=== PATIENT | male | born 1955 | race African-American/Black ===

== ENCOUNTER → 2017-06-26 | Outpatient (REF) ==
--- NOTE | 2017-06-26 10:33 | REP ---
Left shoulder three views : There is no fracture or dislocation. Mineralization and joint spaces are normal. There are no calcifications or foreign bodies. Impression: Negative left shoulder at the . Signed by Jose Martínez MD 06/26/2017 10:25 A
== END ==
LOC: M RAD 09:59
PROVIDERS: ATTEND Internal Medicine
DX: M25.512 Pain in left shoulder (principal)

== ENCOUNTER → 2020-12-05 | Outpatient (CLI) | payer OTHER ==
[~2020-12-05] MED LIST: ATEN100T PO; DILT1CAP5 PO; DOXA2TAB3 PO; DRIS50003 PO; LISI40TA4 PO; MELO15TA28 PO; ROSU40TA4 PO; ZYLO300T6 PO
== END ==
LOC: M LABSMTC 10:32
PROVIDERS: ATTEND Anesthesiology
DX: Z01.812 Encounter for preprocedural laboratory examination (principal)

== ENCOUNTER 2020-12-10 09:44 | Day surgery (SDC) | payer OTHER ==
[~2020-12-10] VITALS: Ht 175.3 cm; Wt 120.7 kg
[~2020-12-10 09:44] MED LIST changes: +NS 1,000 ML IV ONE
[2020-12-10] MEDS ORDERED: LIDOCAINE 2% 100MG/5ML SDV (FOR ANES.) As Ordered ONE (11:39)
[2020-12-10] MEDS ORDERED: propofoL 500 MG/50 ML VIAL As Ordered ONE ×2 (11:39→12:02)
[2020-12-10] MEDS ORDERED: PHENYLephrine 500MCG 5ML (100MCG/ML) SYRINGE As Ordered ONE (11:49)
--- NOTE | 2020-12-10 12:20 | ROOR ---
Patient Name: Tello Moise Procedure Date: 12/10/2020 11:34 AM Date of : 1955 Age: 65 Room: [facility] Gender: Male Note Status: Finalized Procedure: Colonoscopy Indications: High risk colon cancer surveillance: Personal history of colonic polyps Providers: Rivera Joyner MD Referring MD: Foster SCHUMACHER [facility] Marquis SCHUMACHERtolcaribel [facility], Admin. Requesting Provider: Medicines: Monitored Anesthesia Care Complications: No immediate complications. Procedure: Pre-Anesthesia Assessment: - Prior to the procedure, a History and Physical was performed, and patient medications and allergies were reviewed. The patient is competent. The risks and benefits of the procedure and the sedation options and risks were discussed with the patient. All questions were answered and informed consent was obtained. Patient identification and proposed procedure were verified by the physician, the nurse and the anesthesiologist in the endoscopy suite. Mental Status Examination: alert and oriented. Airway Examination: normal oropharyngeal airway and neck mobility. Respiratory Examination: clear to auscultation. CV Examination: normal. Prophylactic Antibiotics: The patient does not require prophylactic antibiotics. Prior Anticoagulants: The patient has taken no previous anticoagulant or antiplatelet agents. ASA Grade Assessment: III - A patient with severe systemic disease. After reviewing the risks and benefits, the patient was deemed in satisfactory condition to undergo the procedure. The anesthesia plan was to use monitored anesthesia care (MAC). Immediately prior to administration of medications, the patient was re-assessed for adequacy to receive sedatives. The heart rate, respiratory rate, oxygen saturations, blood pressure, adequacy of pulmonary ventilation, and response to care were monitored throughout the procedure. The physical status of the patient was re-assessed after the procedure. The Colonoscope was introduced through the anus and advanced to the cecum, identified by appendiceal orifice and ileocecal valve. The colonoscopy was technically difficult and complex due to a redundant colon, a tortuous colon and the patient's body habitus. Successful completion of the procedure was aided by applying abdominal pressure. The patient tolerated the procedure well. Findings: The perianal and digital rectal examinations were normal. Back of ileocaecal valve not fully visualized, colonoscope up to the hub, but not masses visualized. Two flat polyps were found in the transverse colon and cecum. The polyps were diminutive in size. These polyps were removed with a cold biopsy forceps. Resection and retrieval were complete. Estimated blood loss was minimal. A 4 mm polyp was found in the descending colon. The polyp was sessile. The polyp was removed with a cold snare. Resection and retrieval were complete. Estimated blood loss: none. The retroflexed view of the distal rectum and anal verge was normal and showed no anal or rectal abnormalities. There was a medium-sized lipoma, 20 mm in diameter, in the transverse colon. Impression: - Two diminutive polyps in the transverse colon and in the cecum, removed with a cold biopsy forceps. Resected and retrieved. - One 4 mm polyp in the descending colon, removed with a cold snare. Resected and retrieved. - The distal rectum and anal verge are normal on retroflexion view. Recommendation: - Discharge patient to home (ambulatory). - Repeat colonoscopy in 5 years for surveillance of multiple polyps. Procedure Code(s): --- Professional --- 38950, Colonoscopy, flexible; with removal of tumor(s), polyp(s), or other lesion(s) by snare technique 23912, 59, Colonoscopy, flexible; with biopsy, single or multiple Diagnosis Code(s): --- Professional --- K63.5, Polyp of colon Z86.010, Personal history of colonic polyps CPT copyright 2019 [employer]. All rights reserved. The codes documented in this report are preliminary and upon senior qa tester review may be revised to meet current compliance requirements. Rivera Joyner MD Rivera Joyner MD 12/10/2020 12:19:58 PM Electronically signed by Rivera Joyner MD Number of Addenda: 0 Note Initiated On: 12/10/2020 11:34 AM Estimated Blood Loss: Estimated blood loss was minimal.
[2020-12-10 12:45] VITALS: BP 97/58
== END 2020-12-10 12:57 | disposition home or self-care (01) ==
LOC: M OPP 09:44
PROVIDERS: ATTEND Surgery
DX: Z12.11 Encounter for screening for malignant neoplasm of colon (principal); Z86.010 Personal history of colon polyps; D12.6 Benign neoplasm of colon, unspecified; Z79.899 Other long term (current) drug therapy; Z87.891 Personal history of nicotine dependence
CPT/HCPCS: 45380; 45385; 88305; J2370

== ENCOUNTER 2020-12-26 13:38 | Emergency (ER) | payer OTHER ==
[~2020-12-26] VITALS: Ht 175.3 cm; Wt 120.9 kg
[~2020-12-26 13:38] MED LIST changes: -NS 1,000 ML IV ONE
[2020-12-26 14:17] LABS: BASO % 0.3 % (0.0-1.0); EOS % 0.1 % (0.0-3.0); HEMATOCRIT 44.3 % (42.0-52.0); HEMOGLOBIN 14.5 g/dl (13.5-17.5); LYMPH # 0.9 10^3/uL (1.5-5.0); LYMPH % 8.2 % (24.0-44.0); MEAN CORPUSCULAR HEMOGLOBIN 26.8 pg (27.0-33.0); MEAN CORPUSCULAR HGB CONC 32.7 g/dl (32.0-36.5); MEAN CORPUSCULAR VOLUME 81.7 fl (80.0-96.0); MONO % 8.5 % (2.0-8.0); NEUTROPHILS # 9.5 10^3/uL (1.5-8.5); NEUTROPHILS % 82.4 % (36.0-66.0); PLATELET COUNT, AUTOMATED 313 10^3/uL (150-450); RED BLOOD COUNT 5.42 10^6/uL (4.30-6.10); WHITE BLOOD COUNT 11.5 10^3/uL (4.0-10.0)
--- NOTE | 2020-12-26 14:46 | REP ---
INDICATION: Abdominal Pain COMPARISON: None. TECHNIQUE: Upright view of the chest with supine and upright views of the abdomen and pelvis. FINDINGS: Frontal upright view of the chest demonstrates chronic elevation to the left hemidiaphragm and no acute cardiopulmonary process or free air below the diaphragm to suspect pneumoperitoneum. Supine and upright views of the abdomen and pelvis demonstrate nonspecific bowel gas pattern without obstruction or perforation. No organomegaly. No abnormal calcifications. Skeletal structures normal for age. IMPRESSION: Nonspecific bowel gas pattern. <Electronically signed by Mitchell Lo > 12/26/20 [id number]
[2020-12-26 14:52] LABS: ALBUMIN 2.8 GM/DL (3.2-5.2); ALT/SGPT 47 U/L (12-78); BILIRUBIN,DIRECT 0.2 MG/DL (0.0-0.2); BILIRUBIN,TOTAL 0.8 MG/DL (0.2-1.0); BLOOD UREA NITROGEN 18 MG/DL (7-18); CALCIUM LEVEL 12.8 MG/DL (8.8-10.2); CARBON DIOXIDE LEVEL 30 MEQ/L (21-32); CHLORIDE LEVEL 100 MEQ/L (98-107); CK-MB VALUE MASS 1.2 NG/ML (<3.6); CPK CREATINE PHOSPHOKINASE 48 U/L (39-308); CREATININE FOR GFR 1.18 MG/DL (0.70-1.30); GLOMERULAR FILTRATION RATE > 60.0 (>49); GLUCOSE, FASTING 102 MG/DL (70-100); LIPASE 90 U/L (73-393); POTASSIUM SERUM 4.7 MEQ/L (3.5-5.1); SODIUM LEVEL 136 MEQ/L (136-145); TOTAL PROTEIN 6.6 GM/DL (6.4-8.2); TROPONIN I 0.06 NG/ML (< 0.10)
[2020-12-26] MEDS ORDERED: NS 1,000 ML IV ONE (15:25)
[2020-12-26 16:38] LABS: FREE T4 1.28 NG/DL (0.76-1.46); PTH INTACT 357.3 PG/ML (18.5-88.0); THYROID STIMULATING HORMONE 0.733 uIU/ML (0.358-3.740)
[2020-12-26] MEDS ORDERED: MIRA3350 PO (16:55)
[2020-12-26 17:50] VITALS: BP 122/75
--- NOTE | 2020-12-27 06:22 | ECGEPIP ---
[facility] - ED Test Date: 2020-12-26 Pat Name: JHONATHAN GEIGER Department: Room: - Gender: Male Speech And Language Clinician: Elysia MELISSA : 1955 Requested By: KIRILL STEVENS Order Number: [id number] Reading MD: Kirill Daly Measurements Intervals [place] Rate: 94 P: 22 FL: 152 QRS: 72 QRSD: 84 T: 38 QT: 314 QTc: 392 Interpretive Statements Normal sinus rhythm Nonspecific ST and T wave abnormality Similar to tracing done 12-20-14 Electronically Signed on 12-27-2020 6:22:21 EDT by Kirill Daly
== END 2020-12-26 17:50 | disposition home or self-care (01) ==
LOC: M ED 13:38 → EDBD 13:38 → M ED 17:50
DX: K59.00 Constipation, unspecified (principal); I10 Essential (primary) hypertension; E03.9 Hypothyroidism, unspecified; E83.52 Hypercalcemia; Z79.899 Other long term (current) drug therapy

== ENCOUNTER 2021-01-02 10:54 | Inpatient (IN) | payer OTHER ==
[~2021-01-02] VITALS: Ht 180.3 cm; Wt 118.3 kg
[~2021-01-02 10:54] MED LIST changes: +MIRA3350 PO
[2021-01-02 11:30] LABS: BASO % 0.2 % (0.0-1.0); EOS % 0.1 % (0.0-3.0); HEMATOCRIT 44.3 % (42.0-52.0); HEMOGLOBIN 14.3 g/dl (13.5-17.5); LYMPH % 7.1 % (24.0-44.0); MEAN CORPUSCULAR HEMOGLOBIN 25.9 pg (27.0-33.0); MEAN CORPUSCULAR HGB CONC 32.3 g/dl (32.0-36.5); MEAN CORPUSCULAR VOLUME 80.1 fl (80.0-96.0); MONO # 1.3 10^3/uL (0.0-0.8); MONO % 9.2 % (2.0-8.0); NEUTROPHILS # 11.4 10^3/uL (1.5-8.5); NEUTROPHILS % 82.9 % (36.0-66.0); PLATELET COUNT, AUTOMATED 326 10^3/uL (150-450); RED BLOOD COUNT 5.53 10^6/uL (4.30-6.10); WHITE BLOOD COUNT 13.7 10^3/uL (4.0-10.0)
--- NOTE | 2021-01-02 11:42 | REP ---
INDICATION: AMS. COMPARISON: None. TECHNIQUE: CT brain performed in the axial plane. Coronal reconstruction images are performed. FINDINGS: There is mild atrophy. There is no midline shift or mass effect. Small old lacunar infarct is seen in the right frontal white matter adjacent to the frontal horn of the right lateral ventricle. There is no acute intracranial hemorrhage. There is no extra-axial fluid collection. There are mild vascular calcifications in the carotid siphons. Visualized paranasal sinuses and the mastoid air cells are well aerated and clear with no abnormal opacification. IMPRESSION: No acute intracranial abnormalities. Mild atrophy. Old lacunar infarct right frontal white matter. <Electronically signed by Jose Hastings > 01/02/21 [id number]
[2021-01-02] MEDS ORDERED: NS 1,000 ML IV ONE ×3 (11:45→18:30)
--- NOTE | 2021-01-02 11:56 | REP ---
INDICATION: altered mental. COMPARISON: 12/26/2020. TECHNIQUE: Single portable AP view of the chest was performed. FINDINGS: There is stable moderate elevation of the left hemidiaphragm. Crowded lung markings are seen in each lung base with no evidence of acute infiltrate. The heart is not significantly enlarged. The mediastinal silhouette is unchanged. IMPRESSION: No acute pulmonary disease.Stable exam. <Electronically signed by Jose Hastings > 01/02/21 [id number]
[2021-01-02 12:15] LABS: AMPHETAMINES LEVEL URINE NEGATIVE (NEGATIVE); BARBITURATES URINE NEGATIVE (NEGATIVE); BENZODIAZEPINES URINE NEGATIVE (NEGATIVE); CANNABINOIDS URINE NEGATIVE (NEGATIVE); COCAINE METABOLITE URINE NEGATIVE (NEGATIVE); METHADONE URINE NEGATIVE (NEGATIVE); OPIATES URINE NEGATIVE (NEGATIVE); PHENCYCLIDINE URINE NEGATIVE (NEGATIVE)
[2021-01-02 12:32] LABS: ALBUMIN 2.5 GM/DL (3.2-5.2); ALT/SGPT 67 U/L (12-78); BILIRUBIN,DIRECT 0.3 MG/DL (0.0-0.2); BILIRUBIN,TOTAL 0.9 MG/DL (0.2-1.0); BLOOD UREA NITROGEN 23 MG/DL (7-18); CALCIUM LEVEL 14.1 MG/DL (8.8-10.2); CARBON DIOXIDE LEVEL 27 MEQ/L (21-32); CHLORIDE LEVEL 101 MEQ/L (98-107); CK-MB VALUE MASS 10.9 NG/ML (<3.6); CPK CREATINE PHOSPHOKINASE 2557 U/L (39-308); CREATININE FOR GFR 1.13 MG/DL (0.70-1.30); ETHYL ALCOHOL (ETHANOL) < 0.003 % (0.000-0.010); GLOMERULAR FILTRATION RATE > 60.0 (>49); GLUCOSE, FASTING 111 MG/DL (70-100); MB/CK RELATIVE INDEX 0.43 (< OR =4); POTASSIUM SERUM 3.9 MEQ/L (3.5-5.1); SODIUM LEVEL 135 MEQ/L (136-145); THYROID STIMULATING HORMONE 0.472 uIU/ML (0.358-3.740); TROPONIN I 0.24 NG/ML (< 0.10)
[2021-01-02] MEDS ORDERED: CALCITONIN SALMON (MIACALCIN) 400INTERNATIONAL UNITS/2ML INJ (J0630) SQ ONE (13:20)
[2021-01-02] MEDS ORDERED: CINACALCET 30 MG TAB (SENSIPAR) PO ONE (13:40)
[2021-01-02] MEDS ORDERED: VALS1TAB68 PO (14:08)
[2021-01-02] MEDS ORDERED: CYCL-707 PO (14:08)
[2021-01-02] MEDS ORDERED: DOXA1TAB40 PO (14:08)
[2021-01-02] MEDS ORDERED: SENN-23 PO (14:08)
[2021-01-02] MEDS ORDERED: SILD100T PO (14:08)
[2021-01-02] MEDS ORDERED: MED REC COMMENT (14:26)
[2021-01-02 14:32] LABS: CK-MB VALUE MASS 9.3 NG/ML (<3.6); MB/CK RELATIVE INDEX 0.39 (< OR =4); TROPONIN I 0.22 NG/ML (< 0.10)
[2021-01-02] MEDS ORDERED: XALA0.007 OU (14:33)
[2021-01-02] MEDS ORDERED: DICY1CAP8 PO (14:33)
[2021-01-02] MEDS ORDERED: BACITAB PO (14:33)
[2021-01-02] MEDS ORDERED: ASPI32ECTA PO (14:33)
[2021-01-02] MEDS ORDERED: DRIS50003 PO (14:33)
[2021-01-02] MEDS ORDERED: ROSU40TA4 PO (14:33)
[2021-01-02] MEDS ORDERED: LISI20TA33 PO ×2 (14:33)
[2021-01-02] MEDS ORDERED: DILT1CAP6 PO (14:33)
[2021-01-02] MEDS ORDERED: ATEN100T PO (14:33)
[2021-01-02 15:36] LABS: RSV AMPLIFICATION NEGATIVE (NEGATIVE)
--- NOTE | 2021-01-02 15:36 | ECGEPIP ---
[facility] - ED Test Date: 2021-01-02 Pat Name: JHONATHAN GEIGER Department: Room: - Gender: Male Top Case Assembler: LIBIA : 1955 Requested By: SHIVAM Ro Order Number: [id number] Reading MD: Sonya Damon Measurements Intervals [place] Rate: 111 P: 29 IN: 162 QRS: 69 QRSD: 84 T: 69 QT: 308 QTc: 418 Interpretive Statements Sinus tachycardia with occasional premature ventricular complexes Minimal voltage criteria for LVH, may be normal variant ( Sokolow-Jaramillo ) Nonspecific ST and T wave abnormality increased rate/ectopy 12/26/20 Electronically Signed on 01-02-2021 15:35:53 EDT by Sonya Damon
[2021-01-02] MEDS: NS 1,000 ML IV SCH ×2 (17:47→20:05)
--- NOTE | 2021-01-02 18:07 | HPEPDOC ---
General Date of Admission Jan 02, 2021 at 10:55 Date of Service: Jan 02, 2021 Chief Complaint The patient is a 65-year-old male admitted with a reason for visit of Hypercalcemia. History of Present Illness 65-year-old male with a past medical history of hypertension, high calcium. Plan for surgery in January 2021, hyperlipidemia, gout, constipation, glaucoma was brought into the emergency room by EMS for confusion and lethargy. Patient was found by daughter this morning lying in bed, lethargic with urinary incontinence. In the ED, patient was found to have hypercalcemia over 14 with severe dehydration and rhabdomyolysis .ED physician got in touch with Dr. Alka Wise and the started the patient on Sensipar a as per her recommendations. . He was given IV fluid boluses. By the time I saw the patient. Patient was more awake. . He knew that he was in the hospital and couldn't give me the correct name of the hospital. He was able to give me a little bit of the history. He reported that since he had his colonoscopy on December 10. He hasn't felt right. He has been having lower abdominal pains which are crampy in nature. When the cramps come he rates the pain at about 8/10. He has been constipated, hasn't been able to eat or drink much. He has been so weak and tired that he has been mostly sitting around. On further questioning, he said that he does have history of hypertension and he [facility] Home Medications Scheduled Allopurinol (Zyloprim) 300 Mg Tablet, 300 MG PO DAILY, (Reported) Aspirin (Aspirin EC) 325 Mg Tablet.dr, 325 MG PO DAILY, (Reported) Atenolol (Atenolol) 100 Mg Tablet, 100 MG PO DAILY, (Reported) Diltiazem HCl (Diltiazem 24Hr ER) 240 Mg Cap.sa.24h, 240 MG PO QPM, (Reported) Doxazosin Mesylate (Doxazosin Mesylate) 4 Mg Tablet, 4 MG PO QHS, (Reported) Ergocalciferol (Vitamin D2) (Drisdol) 1,250 Mcg Capsule, 1,250 MCG PO Q2WK, (Reported) L.acidoph/L.bulg/B.bif/S.therm (Bacid Caplet) 1 Each Tablet, 1 TAB PO QID, (Reported) Latanoprost (Xalatan) 0.005% 2.5ML Drops, 1 DROP OU QHS, (Reported) Lisinopril (Lisinopril) 20 Mg Tablet, 10 MG PO QAM, (Reported) Lisinopril (Lisinopril) 20 Mg Tablet, 40 MG PO QHS, (Reported) Meloxicam (Meloxicam) 15 Mg Tablet, 15 MG PO DAILY, (Reported) Rosuvastatin Calcium (Rosuvastatin Calcium) 40 Mg Tablet, 40 MG PO QPM, (Reported) Valsartan (Valsartan) 320 Mg Tablet, 320 MG PO DAILY, (Reported) Scheduled PRN Cyclobenzaprine HCl (Cyclobenzaprine HCl) 10 Mg Tablet, 10 MG PO QHS PRN for MUSCLE SPASMS, (Reported) Dicyclomine HCl (Dicyclomine HCl) 10 Mg Capsule, 10 MG PO TID PRN for ABDOMINAL PAIN, (Reported) Sennosides/Docusate Sodium (Senna-S Tablet) 1 Each Tablet, 3 TAB PO DAILY PRN for CONSTIPATION, (Reported) Sildenafil Citrate (Sildenafil Citrate) 100 Mg Tablet, 50 MG PO ASDIRECTED PRN for ERECTILE DYSFUNCTION, (Reported) Miscellaneous Medications [Med Rec Comment] , (Reported) VERIFIED MEDICATIONS WITH DAUGHTER [place] WHO HAD PILL BOTTLES, UNSURE WHEN TAKEN LAST Allergies Coded Allergies: No Known Allergies (Unverified , 12/02/20) Past Medical History Medical History Hypertension HLD CHRISTI untreated High calcium planned for parathyroid surgery in january 2021. BPH Glaucoma Gout Erectile dys Family History Significant Family History: Hypertension Social History * Smoker: former Smoker Alcohol: occationally Drugs: denies A-FIB/CHADSVASC A-FIB History Current/History of A-Fib/PAF?: No Review of Systems Constitutional: Reports: Malaise, Weakness, Fatigue Eyes: Denies: Pain, Vision change Skin: Denies: Rash, Lesions, Breakdown Pulmonary: Denies: Dyspnea, Cough Cardiovascular: Denies: Chest Pain, Palpitations, Orthopnea, Paroxysmal Noc. Dyspnea, Lt Headedness Gastrointestinal: Reports: Abdominal Pain, Constipation; Denies: Nausea, Vomiting, Diarrhea Genitourinary: Reports: Incontinence Hematologic: Denies: Bruising, Bleeding Excessively Physical Examination General Exam: Positive: Cooperative, No Acute Distress, Other (somnolent but easily arousable and oriented to place and person and knew it was the end of december 2020.) Eye Exam: Positive: Conjunctiva & lids normal, EOMI ENT Exam: Positive: Atraumatic, Other ENT (dry mucous membranes, chaped lips) Neck Exam: Positive: Supple; Negative: JVD, thyromegaly Chest Exam: Positive: Clear to auscultation, Normal air movement Heart Exam: Positive: Tachycardic, Regular Rhythm, Normal S1, Normal S2; Negative: Murmurs, Rubs Abdomen Exam: Positive: Normal bowel sounds, Soft, Tenderness (lower abdomen); Negative: Hepatospenomegaly Extremity Exam: Negative: Clubbing, Cyanosis, Edema Neuro Exam: Positive: Normal Speech, Strength at 5/5 X4 ext, Normal Tone Vital Signs Vital Signs Date Time Temp Pulse Resp B/P (MAP) Pulse Ox O2 Delivery O2 Flow Rate FiO2 01/02/21 16:04 96.1 108 20 166/84 (111) 100 Nasal Cannula 2.0 Laboratory Data Labs 24H Laboratory Tests 2 01/02/21 11:18: Immature Granulocyte % (Auto) 0.5, Neutrophils (%) (Auto) 82.9H, Lymphocytes (%) (Auto) 7.1L, Monocytes (%) (Auto) 9.2H, Eosinophils (%) (Auto) 0.1, Basophils (%) (Auto) 0.2, Neutrophils # (Auto) 11.4H, Lymphocytes # (Auto) 1.0L, Monocytes # (Auto) 1.3H, Eosinophils # (Auto) 0.0, Basophils # (Auto) 0.0, Nucleated Red Blood Cells % (auto) 0.0, Urine Color YELLOW, Urine Appearance HAZY, Urine pH 5.0, Urine Specific [place] 1.013, Urine Protein 2+H, Urine Glucose (UA) NEGATIVE, Urine Ketones NEGATIVE, Urine Blood 2+H, Urine Nitrite NEGATIVE, Urine Bilirubin NEGATIVE, Urine Urobilinogen 2.0H, Urine Leukocyte Esterase NEGATIVE, Urine WBC (Auto) 6H, Urine RBC (Auto) 3, Urine Hyaline Casts (Auto) 0, Urine Bacteria (Auto) 1+H, Urine Squamous Epithelial Cells 1, Urine Mucus (Auto) SMALL, Urine Sperm (Auto) , Anion Gap 7L, Glomerular Filtration Rate > 60.0, Lactic Acid Level 1.7, Calcium Level 14.1*H, Total Bilirubin 0.9, Direct Bilirubin 0.3H, Aspartate Amino Transf (AST/SGOT) 140H, Alanine Aminotransferase (ALT/SGPT) 67, Alkaline Phosphatase 104, Ammonia 34H, Total Creatine Kinase 2557H, Creatine Kinase MB 10.9H, Creatine Kinase MB Relative Index 0.43, Troponin I 0.24H, Total Protein 7.0, Albumin 2.5L, Albumin/Globulin Ratio 0.6, Thyroid Stimulating Hormone (TSH) 0.472, Urine Opiates Screen NEGATIVE, Urine Methadone Screen NEGATIVE, Urine Barbiturates Screen NEGATIVE, Urine Phencyclidine Screen NEGATIVE, Urine Amphetamines Screen NEGATIVE, Urine Benzodiazepines Screen NEGATIVE, Urine Cocaine Metabolite Screen NEGATIVE, Urine Cannabinoids Screen NEGATIVE, Ethyl Alcohol Level < 0.003 01/02/21 13:38: Total Creatine Kinase 2379H, Creatine Kinase MB 9.3H, Creatine Kinase MB Relative Index 0.39, Troponin I 0.22H, Whole Blood Ionized Calcium 6.7*H 01/02/21 14:46: Coronavirus (COVID-19)(PCR) NEGATIVE, Influenza Type A (RT-PCR) NEGATIVE, Influenza Type B (RT-PCR) NEGATIVE, Respiratory Syncytial Virus (PCR) NEGATIVE CBC/BMP Laboratory Tests 01/02/21 11:18 Microbiology Microbiology 01/02/21 Blood Culture, Received Pending 01/02/21 Blood Culture, Received Pending Assessment/Plan 65-year-old male with a past medical history of hypertension, high calcium. Plan for surgery in January 2021, hyperlipidemia, gout, constipation, glaucoma was brought into the emergency room by EMS for confusion and lethargy. Patient was found by daughter this morning lying in bed, lethargic with urinary incontinence. In the ED, patient was found to have hypercalcemia over 14 with severe dehydration and rhabdomyolysis . Hypercalcemia with dehydration Due to hyperparathyroidism. IVF, sensipar Rhabdomyomysis continue IVF Hypertension patient is on both lisinopril and valsatan will only give valsartan, continue atenolol and diltiazem and doxazosin BPH doxazosin. Gout allopurinol HLD rosuvastatin. Plan / VTE VTE Prophylaxis Ordered?: Yes ROSEY BARNARD MD Jan 02, 2021 18:07
[2021-01-02 18:24] VITALS: BP 129/85
[2021-01-02 20:00] VITALS: BP 141/85
[2021-01-02] MEDS: CINACALCET 30 MG TAB (SENSIPAR) PO SCH (21:47)
[2021-01-02] MEDS: SENOKOT S TAB PO SCH (21:48)
[2021-01-02] MEDS: ROSUVASTATIN 10 MG TAB (CRESTOR) PO SCH (21:49)
[2021-01-02] MEDS: DOXAZOSIN MESYLATE 4 MG TAB PO SCH (21:50)
[2021-01-02] MEDS: MIRALAX *UNIT DOSE* 17GM PACKET PO SCH (21:50)
[2021-01-03] VITALS: BP 116/65
[2021-01-03] MEDS: NS 1,000 ML IV SCH ×5 (00:17→23:27)
[2021-01-03 04:00] VITALS: BP 119/55
--- NOTE | 2021-01-03 06:18 | ECGEPIP ---
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
[2021-01-03 07:25] VITALS: BP 131/74
[2021-01-03] MEDS: CINACALCET 30 MG TAB (SENSIPAR) PO SCH ×2 (08:08→20:20)
[2021-01-03] MEDS: MIRALAX *UNIT DOSE* 17GM PACKET PO SCH ×2 (08:08→20:13)
[2021-01-03] MEDS: SENOKOT S TAB PO SCH ×2 (08:08→20:14)
[2021-01-03] MEDS: atenoloL 50 MG TAB PO SCH (08:08)
[2021-01-03] MEDS: ASPIRIN ENTERIC 325 MG TAB PO SCH (08:08)
[2021-01-03] MEDS: ENOXAPARIN 40MG/0.4ML SYRINGE (J1650 PER 10MG) SC SCH (08:08)
[2021-01-03] MEDS: VALSARTAN 80 MG TAB (DIOVAN) PO SCH (08:09)
[2021-01-03] MEDS: allopurinoL 300 MG TAB PO SCH (08:09)
[2021-01-03 10:13] LABS: HEMATOCRIT 36.4 % (42.0-52.0); MEAN CORPUSCULAR HEMOGLOBIN 26.9 pg (27.0-33.0); MEAN CORPUSCULAR HGB CONC 32.4 g/dl (32.0-36.5); MEAN CORPUSCULAR VOLUME 82.9 fl (80.0-96.0); PLATELET COUNT, AUTOMATED 251 10^3/uL (150-450); RED BLOOD COUNT 4.39 10^6/uL (4.30-6.10)
[2021-01-03 10:14] LABS: HEMOGLOBIN 11.8 g/dl (13.5-17.5)
[2021-01-03 10:42] LABS: ALT/SGPT 49 U/L (12-78); BILIRUBIN,TOTAL 0.5 MG/DL (0.2-1.0); BLOOD UREA NITROGEN 18 MG/DL (7-18); CALCIUM LEVEL 10.8 MG/DL (8.8-10.2); CARBON DIOXIDE LEVEL 28 MEQ/L (21-32); CHLORIDE LEVEL 112 MEQ/L (98-107); CK-MB VALUE MASS 2.5 NG/ML (<3.6); CPK CREATINE PHOSPHOKINASE 619 U/L (39-308); CREATININE FOR GFR 0.75 MG/DL (0.70-1.30); GLOMERULAR FILTRATION RATE > 60.0 (>49); GLUCOSE, FASTING 100 MG/DL (70-100); POTASSIUM SERUM 3.7 MEQ/L (3.5-5.1); SODIUM LEVEL 144 MEQ/L (136-145); TOTAL PROTEIN 5.2 GM/DL (6.4-8.2); TROPONIN I 0.09 NG/ML (< 0.10)
[2021-01-03] MEDS: VANCOMYCIN HCL 1,000 MG, VIAL MATE ADAPTER 1 EACH in NS 250 ML IV SCH ×2 (11:55→20:13)
[2021-01-03 12:00] VITALS: BP 95/52
--- NOTE | 2021-01-03 14:54 | IPNPDOC ---
Subjective Date Seen The patient was seen on 01/03/21. Subjective Chief Complaint/HPI And patient was sleeping in bed on iron in the room. He was easily aroused. He reports that he is feeling well at this time, and does not have any acute complaints. He is not complaining of any pain at this time. The remainder of his review of systems is negative. Objective Physical Examination General Exam: Positive: Cooperative, No Acute Distress, Other (somnolent but easily arousable and oriented to place and person and knew it was the end of december 2020.) Eye Exam: Positive: Conjunctiva & lids normal, EOMI ENT Exam: Positive: Atraumatic Neck Exam: Positive: Supple; Negative: JVD, thyromegaly Chest Exam: Positive: Clear to auscultation, Normal air movement; Negative: Rales, Rhonchi, Wheezing Heart Exam: Positive: Rate Normal, Regular Rhythm, Normal S1, Normal S2; Negative: Murmurs, Rubs Abdomen Exam: Positive: Normal bowel sounds, Soft, Tenderness (lower abdomen); Negative: Hepatospenomegaly Extremity Exam: Negative: Clubbing, Cyanosis, Edema Assessment /Plan Assessment 65-year-old male with a past medical history of hypertension, high calcium. Plan for surgery in January 2021, hyperlipidemia, gout, constipation, glaucoma was brought into the emergency room by EMS for confusion and lethargy. Patient was found by daughter this morning lying in bed, lethargic with urinary incontinence. In the ED, patient was found to have hypercalcemia over 14 with severe dehydration and rhabdomyolysis . Hypercalcemia with dehydration Due to hyperparathyroidism, apparently he is scheduled for surgery later this month -Improving -Continue IV fluids -Continue Sensipar twice daily dosing while inpatient, and then reduce to 30 mg daily upon discharge Rhabdomyomysis -Significantly improved, however not completely resolved. Will slow rate of IV fluids down from 250 mL/hr to 100 mL/hr Blood culture positive for gram-positive cocci in pairs and chains -Patient has not had any fevers, and white count was improving without the administration of antibiotics, however, given his entire clinical picture we will certainly treat him empirically. IV vancomycin has been started today, and we will repeat blood cultures. Hypertension -continue valsartan, atenolol, diltiazem, and doxazosin BPH -doxazosin. Gout -allopurinol HLD -rosuvastatin. DVD prophylaxis -Lovenox Plan/VTE VTE Prophylaxis Ordered?: Yes VS, I&O, 24H, Fishbone Vital Signs/I&O Vital Signs Date Time Temp Pulse Resp B/P (MAP) Pulse Ox O2 Delivery O2 Flow Rate FiO2 01/03/21 12:00 97.4 74 18 95/52 (66) 95 Room Air 01/02/21 20:00 I&O- Last 24 Hours up to 6 AM 01/03/21 06:00 Intake Total 3650 ml Output Total 200 ml Balance 3450 ml Laboratory Data 24H LABS Laboratory Tests 2 01/03/21 09:53: Nucleated Red Blood Cells % (auto) 0.0, Anion Gap 4L, Glomerular Filtration Rate > 60.0, Calcium Level 10.8#H, Total Bilirubin 0.5, Aspartate Amino Transf (AST/SGOT) 60H, Alanine Aminotransferase (ALT/SGPT) 49, Alkaline Phosphatase 84, Total Creatine Kinase 619H, Creatine Kinase MB 2.5, Creatine Kinase MB Relative Index 0.40, Troponin I 0.09#, Total Protein 5.2#L, Albumin 2.0L, Albumin/Globulin Ratio 0.6 CBC/BMP Laboratory Tests 01/03/21 09:53 Microbiology Microbiology 01/02/21 Blood Culture, Received Pending 01/02/21 Blood Culture - Preliminary, Resulted RACHELLE TURNER DO January 03, 2021 14:54
[2021-01-03] MEDS: DOXAZOSIN MESYLATE 4 MG TAB PO SCH (20:18)
[2021-01-03] MEDS: ROSUVASTATIN 10 MG TAB (CRESTOR) PO SCH (20:19)
[2021-01-03 22:00] VITALS: BP 108/69
[2021-01-04] MEDS: VANCOMYCIN HCL 1,000 MG, VIAL MATE ADAPTER 1 EACH in NS 250 ML IV SCH ×3 (03:36→20:11)
[2021-01-04 06:00] VITALS: BP 114/71
[2021-01-04 06:54] LABS: HEMATOCRIT 37.4 % (42.0-52.0); HEMOGLOBIN 11.8 g/dl (13.5-17.5); MEAN CORPUSCULAR HEMOGLOBIN 26.3 pg (27.0-33.0); MEAN CORPUSCULAR HGB CONC 31.6 g/dl (32.0-36.5); MEAN CORPUSCULAR VOLUME 83.5 fl (80.0-96.0); PLATELET COUNT, AUTOMATED 262 10^3/uL (150-450); RED BLOOD COUNT 4.48 10^6/uL (4.30-6.10); WHITE BLOOD COUNT 13.3 10^3/uL (4.0-10.0)
[2021-01-04 07:08] LABS: ALT/SGPT 46 U/L (12-78); BILIRUBIN,TOTAL 0.4 MG/DL (0.2-1.0); BLOOD UREA NITROGEN 14 MG/DL (7-18); CALCIUM LEVEL 12.4 MG/DL (8.8-10.2); CARBON DIOXIDE LEVEL 27 MEQ/L (21-32); CHLORIDE LEVEL 111 MEQ/L (98-107); CREATININE FOR GFR 0.74 MG/DL (0.70-1.30); GLOMERULAR FILTRATION RATE > 60.0 (>49); GLUCOSE, FASTING 99 MG/DL (70-100); POTASSIUM SERUM 3.5 MEQ/L (3.5-5.1); SODIUM LEVEL 143 MEQ/L (136-145); TOTAL PROTEIN 5.7 GM/DL (6.4-8.2)
[2021-01-04 07:36] LABS: C REACTIVE PROTEIN QUANTITATIV 4.98 MG/DL (0.00-0.30)
[2021-01-04 08:19] LABS: ERYTHROCYTE SEDIMENTATION RATE 42 mm/hr (0-20)
[2021-01-04] MEDS: SENOKOT S TAB PO SCH ×2 (08:40→20:09)
[2021-01-04] MEDS: ASPIRIN ENTERIC 325 MG TAB PO SCH (08:40)
[2021-01-04] MEDS: MIRALAX *UNIT DOSE* 17GM PACKET PO SCH ×2 (08:40→20:11)
[2021-01-04] MEDS: CINACALCET 30 MG TAB (SENSIPAR) PO SCH ×2 (08:40→20:10)
[2021-01-04] MEDS: atenoloL 50 MG TAB PO SCH (08:40)
[2021-01-04] MEDS: allopurinoL 300 MG TAB PO SCH (08:40)
[2021-01-04] MEDS: VALSARTAN 80 MG TAB (DIOVAN) PO SCH (08:40)
[2021-01-04] MEDS: NS 1,000 ML IV SCH (08:41)
[2021-01-04] MEDS: ENOXAPARIN 40MG/0.4ML SYRINGE (J1650 PER 10MG) SC SCH (08:41)
--- NOTE | 2021-01-04 10:38 | IPNPDOC ---
Text Note Date of Service The patient was seen on 01/04/21. NOTE Subjective: Patient is a 65-year-old male with a PMHx of HTN, Hypercalcemia (planed for surgery 01/2021), DLP, Gout, Constipation, Glaucoma , who presented to the ER with confusion and lethargy. Upon arrival to emergency room, patient had hypercalcemia over 14 with dehydration and rhabdomyolysis. Patient was admitted to the hospitalist service for further evaluation and treatment. Patient was seen and examined at the bedside. Patient is sleeping, however was e asily arousable and able to answer questions. He denied any chest pain, shortness breath or palpitations. Has not experience any nausea, vomiting or abdominal pain. Patient had a Loving catheter placed in the emergency room because of his urinary incontinence. Objective: Vitals (See below) General: Lying in bed, no acute distress, comfortable, AAOx3 HEENT: NC, AT CVS: RRR, +S1S2 Lungs: Fair air entry b/l, -w/r/r Abdomen: Soft, ND, NT Extremities: - Edema, - Calf tenderness Imaging: CT head 01/02: No acute intracranial abnormalities. Mild atrophy. Old lacunar infarct right frontal white matter. CXR 01/02: No acute pulmonary disease.Stable exam. Assessment and plan: Hypercalcemia with dehydration - Likely 2/2 hyperparathyroidism . Given that patient is scheduled for surgery later this month - Vitamin D (25-OH, 1,25-OH), PTH pending - Continue with IV fluids - Continue Cinacalcet - Nephrology has been called on consultation; we appreciate their input Rhabdomyolysis - CK Improving - c/w IV fluids Blood culture positive for gram-positive cocci in pairs and chains - Review of systems is negative for any source of infection - Patient has been hemodynamically stable and afebrile - Patient does have leukocytosis - Blood cultures 01/02 and 01/03: Have all been positive for gram-positive cocci in pairs and chains - Will check ESR / CRP / ECHO - c/w Vancomycin (Day #2) - Will consult infectious disease tomorrow Hypertension - BP well controlled - c/w valsartan, atenolol, diltiazem, and doxazosin BPH - c/w Doxazosin Gout - c/w Allopurinol DLP - c/w Rosuvastatin GI prophylaxis - c/w DVT prophylaxis - c/w Lovenox Disposition: - Will consult nephrology for hypercalcemia VS,Fishbone, I+O VS, Fishbone, I+O Laboratory Tests 01/04/21 06:06 Vital Signs Date Time Temp Pulse Resp B/P (MAP) Pulse Ox O2 Delivery O2 Flow Rate FiO2 01/04/21 08:40 114/71 01/04/21 06:00 98.1 94 18 93 Room Air 01/02/21 20:00 I&O- Last 24 Hours up to 6 AM 01/04/21 05:59 Intake Total 4478 ml Output Total 950 ml Balance 3528 ml KENDRICK QUINTANILLA MD January 04, 2021 10:38
[2021-01-04 10:39] LABS: VANCOMYCIN RANDOM 15.6 UG/ML
[2021-01-04] MEDS ORDERED: POTASSIUM CHLORIDE 10 MEQ SR TABLET PO ONE (11:00)
[2021-01-04] MEDS: CALCITONIN SALMON (MIACALCIN) 400INTERNATIONAL UNITS/2ML INJ (J0630) SQ SCH (12:32)
[2021-01-04] MEDS ORDERED: FUROSEMIDE 100MG/10ML VIAL (J1940) IV ONE (13:00)
[2021-01-04 13:11] LABS: BLOOD UREA NITROGEN 14 MG/DL (7-18); CALCIUM LEVEL 11.3 MG/DL (8.8-10.2); CARBON DIOXIDE LEVEL 29 MEQ/L (21-32); CHLORIDE LEVEL 109 MEQ/L (98-107); CREATININE FOR GFR 0.81 MG/DL (0.70-1.30); GLOMERULAR FILTRATION RATE > 60.0 (>49); GLUCOSE, FASTING 120 MG/DL (70-100); POTASSIUM SERUM 3.8 MEQ/L (3.5-5.1); SODIUM LEVEL 141 MEQ/L (136-145)
[2021-01-04 13:17] LABS: MAGNESIUM LEVEL 1.5 MG/DL (1.8-2.4); PHOSPHORUS LEVEL 2.2 MG/DL (2.5-4.9); TROPONIN I 0.05 NG/ML (< 0.10)
[2021-01-04] MEDS: MAG SULF 1GM/100ML (MAG RUN) 1 GM in IV 1 EA IV SCH ×2 (13:32→14:44)
--- NOTE | 2021-01-04 13:51 | ECGEPIP ---
[facility] Test Date: 2021-01-04 Pat Name: JHONATHAN GEIGER Department: Room: [place] [address] Gender: Male Bobbin Fixer: BESSIE : 1955 Requested By: KENDRICK QUINTANILLA Order Number: [id number] Reading MD: Sakshi rBuno Measurements Intervals [place] Rate: 69 P: 30 FL: 180 QRS: 53 QRSD: 162 T: 209 QT: 454 QTc: 486 Interpretive Statements Sinus rhythm with occasional premature ventricular complexes Left bundle branch block RATE SLOWER. LBBB,PVC NEW C/W 01/02/21 PRIOR WITH ACCEL JCT RHYTHM Electronically Signed on 01-04-2021 13:50:42 EDT by Sakshi Bruno
[2021-01-04 14:00] VITALS: BP 94/60
[2021-01-04] MEDS ORDERED: NS 1,000 ML IV SCH (14:00)
[2021-01-04] MEDS ORDERED: ZOLEDRONIC ACID 4 MG in IV 1 EA IV ONE (15:00)
--- NOTE | 2021-01-04 15:00 | CR ---
CONSULTATION DATE: 01/04/2021 REQUESTING PHYSICIAN: Dr. Khushboo Ramon REASON FOR CONSULTATION: Management of hypercalcemia. CHIEF COMPLAINT: Patient was admitted on 01/02/2021 for confusion and altered mental status. HISTORY OF PRESENT ILLNESS: Note; history was obtained from patient's chart and from medical team. Patient is not a very good historian. Tello Moise is a 65-year-old male with a past medical history of hypertension, chronic gout, normal renal function at baseline with a creatinine of around 1 to 1.1 as per previous records, questionable history of primary hyperparathyroidism and as per documentations, patient is supposed to have surgery of his parathyroid gland done sometime at the end of this month. He was brought to the Emergency Room with confusion, lethargy and altered mental status. Further evaluation in the ER showed that his calcium was 14.1. He had mild rhabdomyolysis with a CPK of 2,557. He was hydrated. He was started on I.V. fluid hydration. Patient was discussed with the endocrine service, and they recommended starting the patient on Sensipar 30 mg p.o. twice a day. Patient was started on this medicine and he was also given I.V. fluid hydration, however despite that, his calcium level did not improve. So today morning, nephrology service was called because his calcium was still 12.4 and albumin corrected calcium was 14. I saw and evaluated the patient today morning at the bedside. He was getting I.V. fluid hydration and he was in moderate respiratory distress. He is a poor good historian. PAST MEDICAL HISTORY: Hypertension, hyperlipidemia, obstructive sleep apnea, hypercalcemia, possibly primary hyperparathyroidism; surgery is scheduled in [place] at the end of this month, history of BPH, chronic gout, glaucoma, erectile dysfunction. PAST SURGICAL HISTORY: Unknown; I do not see any history of procedures in his documentations. FAMILY HISTORY: No significant family history of end-stage renal disease. There is positive history of hypertension in the family. SOCIAL HISTORY: He is a former smoker. He occasionally drinks alcohol. No history of drug abuse. ALLERGIES: No known drug allergies. REVIEW OF SYSTEMS: CONSTITUTIONAL: Patient reports malaise and weakness. EYES: He denies any blurry vision, double vision. ENT: He denies any dysphagia or odynophagia. CARDIOVASCULAR: He denies any chest pain or palpitations. RESPIRATORY: He does report mild shortness of breath. GI: He denies any nausea or vomiting. He did have abdominal pain on arrival. GENITOURINARY: He reports urinary incontinence. MUSCULOSKELETAL: He denies any muscle aches and pains. SKIN: He denies any rashes or ulcers. HEMATOLOGIC/ONCOLOGIC: He denies any easy bleeding or bruising. All other review of systems is negative. PHYSICAL EXAMINATION: GENERAL: Patient is awake, alert and oriented x2, lying in bed. VITAL SIGNS: Temperature 98.1 degrees Fahrenheit, blood pressure 114/71, pulse 94, respiratory rate 18, saturating 93% on room air. HEAD AND NECK: Extraocular muscles intact. Pupils equally round and reactive to light. Mucous membranes are moist. Neck is supple. Mildly elevated JVD is noted. CARDIOVASCULAR: S1, S2, regular rate. No edema of the bilateral lower extremities. RESPIRATORY: Patient is slightly tachypneic. Mild inspiratory crackles bilaterally at the bases on deep inspiration. ABDOMEN: Soft, obese, positive bowel sounds, nontender . No organomegaly. MUSCULOSKELETAL: No clubbing or cyanosis. Pulses are 2+. VIDEO GAME ENGINEER: No focal deficit. Power is 5/5 in all extremities. LABORATORY REVIEW: CBC showed WBC 13.3, hemoglobin 11.8, platelets 262,000. Urine protein is 2+. BMP today morning showed sodium 143, potassium 3.5, chloride 111, bicarb 27, BUN 14, creatinine 0.74. Calcium 12.4. AST 48, ALT 46, alkaline phosphatase 82. Albumin 2. PTH level is pending, however, parathyroid hormone on 12/26/2020 was 357. Phosphorus 2.2, magnesium 1.5. MICROBIOLOGY: Patient's three blood cultures so far are growing gram positive cocci in pairs and chains. IMAGING STUDIES: A chest x-ray was done on arrival, which showed no acute pulmonary disease. CURRENT INPATIENT MEDICATIONS: Patient's medications were all reviewed by myself. He was given two doses of I.V. magnesium sulfate. I.V. fluids have been stopped. He was given K-PHOS 15 mmol I.V. times one dose. He continues to be on I.V. Vancomycin. I have ordered one dose of Zoledronic acid 4 mg I.V. He is on Allopurinol 300 mg p.o. daily, aspirin 325 mg p.o. daily, Atenolol 100 mg p.o. daily. I have started him on Calcitonin 400 IU subcutaneously every 12 hours for a total of four doses. He is on Sensipar 30 mg p.o. twice a day, Diltiazem 240 mg p.o. q.p.m., Doxazosin 4 mg q.h.s., Lovenox 40 mg subcutaneously daily. I gave him a dose of Lasix 60 mg I.V. times one dose. He is on potassium chloride 40 mEq p.o. times one dose. He is also on K-PHOS one packet p.o. three times a day, Rosuvastatin 40 mg q.p.m., Valsartan 320 mg p.o. daily. ASSESSMENT AND PLAN: 1. Hypercalcemia: Patient's repeat PTH level is pending. I do not have the full history. Apparently patient is scheduled for parathyroidectomy in [place]. According to previous records, his parathyroid hormone is not that high, it is less than 400. He is currently being treated with Sensipar. I have added Zoledronic Acid and subcutaneously Calcitonin. Hopefully his calcium level should get better. He was getting I.V. fluid hydration and he was short of breath. I have stopped the I.V. fluid and given him a dose of Lasix. 2. Rhabdomyolysis: It is very mild rhabdomyolysis, which should get better with the I.V. fluid that he has received so far. No need of further I.V. fluid hydration. 3. Hypertension: Blood pressure is controlled with current antihypertensive regimen. No change in the regimen at this time. 4. Chronic gout secondary to chronic kidney disease: Continue current dose of Allopurinol. 5. Gram positive cocci bacteremia: Patient is currently on I.V. Vancomycin. He will need echocardiogram to rule out infective endocarditis. 6. Hypomagnesemia: Patient was given I.V. magnesium. 7. Hypophosphatemia: Patient is on oral and I.V. PHOS. Thank you for involving me in the care of this patient. I shall be happy to follow the patient along with you tomorrow morning.
[2021-01-04 15:22] VITALS: BP 102/66
[2021-01-04] MEDS ORDERED: POTASSIUM PHOSPHATE INJ 15 MMOL in D5W 250 ML IV ONE (16:00)
[2021-01-04] MEDS: NEUTRA-PHOS 1.5 GM PACKET PO SCH ×2 (16:05→20:09)
[2021-01-04] MEDS ORDERED: SLF 3 ML SYR IV PRN (17:20)
[2021-01-04 17:39] LABS: CK-MB VALUE MASS 2.2 NG/ML (<3.6); MB/CK RELATIVE INDEX 0.53 (< OR =4); TROPONIN I 0.04 NG/ML (< 0.10)
[2021-01-04 19:56] LABS: CK-MB VALUE MASS 2.3 NG/ML (<3.6); MB/CK RELATIVE INDEX 0.66 (< OR =4); TROPONIN I 0.04 NG/ML (< 0.10)
[2021-01-04 20:00] VITALS: BP 127/80
[2021-01-04] MEDS: ROSUVASTATIN 10 MG TAB (CRESTOR) PO SCH (20:08)
[2021-01-04] MEDS: DOXAZOSIN MESYLATE 4 MG TAB PO SCH (20:09)
[2021-01-04] MEDS: SLF 3 ML SYR IV SCH (22:44)
[2021-01-05] VITALS: BP 100/60
[2021-01-05] MEDS: CALCITONIN SALMON (MIACALCIN) 400INTERNATIONAL UNITS/2ML INJ (J0630) SQ SCH ×3 (01:18→23:36)
[2021-01-05 01:38] LABS: MB/CK RELATIVE INDEX 0.57 (< OR =4); TROPONIN I 0.04 NG/ML (< 0.10)
[2021-01-05] MEDS: VANCOMYCIN HCL 1,000 MG, VIAL MATE ADAPTER 1 EACH in NS 250 ML IV SCH ×2 (03:56→12:40)
[2021-01-05 04:00] VITALS: BP 117/64
[2021-01-05 05:57] LABS: HEMATOCRIT 36.5 % (42.0-52.0); HEMOGLOBIN 11.8 g/dl (13.5-17.5); MEAN CORPUSCULAR HEMOGLOBIN 26.8 pg (27.0-33.0); MEAN CORPUSCULAR HGB CONC 32.3 g/dl (32.0-36.5); PLATELET COUNT, AUTOMATED 278 10^3/uL (150-450); WHITE BLOOD COUNT 12.5 10^3/uL (4.0-10.0)
[2021-01-05] MEDS: SLF 3 ML SYR IV SCH ×3 (06:00→20:33)
[2021-01-05 06:29] LABS: TOTAL PROTEIN 5.4 GM/DL (6.4-8.2)
[2021-01-05 06:39] LABS: ALBUMIN 2.1 GM/DL (3.2-5.2); ALT/SGPT 44 U/L (12-78); BILIRUBIN,TOTAL 0.5 MG/DL (0.2-1.0); BLOOD UREA NITROGEN 17 MG/DL (7-18); CALCIUM LEVEL 11.1 MG/DL (8.8-10.2); CARBON DIOXIDE LEVEL 27 MEQ/L (21-32); CHLORIDE LEVEL 109 MEQ/L (98-107); CREATININE FOR GFR 0.93 MG/DL (0.70-1.30); GLOMERULAR FILTRATION RATE > 60.0 (>49); GLUCOSE, FASTING 123 MG/DL (70-100); PHOSPHORUS LEVEL 2.3 MG/DL (2.5-4.9); SODIUM LEVEL 142 MEQ/L (136-145); TOTAL PROTEIN 5.3 GM/DL (6.4-8.2)
[2021-01-05 08:00] VITALS: BP 110/55
--- NOTE | 2021-01-05 09:00 | IPNPDOC ---
Text Note Date of Service The patient was seen on 01/05/21. NOTE Subjective: Patient is a 65-year-old male with a PMHx of HTN, Hypercalcemia (planed for surgery 01/2021), DLP, Gout, Constipation, Glaucoma , who presented to the ER with confusion and lethargy. Upon arrival to emergency room, patient had hypercalcemia over 14 with dehydration and rhabdomyolysis. Patient was admitted to the hospitalist service for further evaluation and treatment. Patient was seen and examined at the bedside. Patient reports he has had an unev entful evening denies any chest pain, shortness breath, palpitations, has not spent any nausea, vomiting, abdominal pain or diarrhea. Denies any urinary discomfort. Objective: Vitals (See below) General: Lying in bed, no acute distress, comfortable, awake / alert HEENT: NC, AT CVS: RRR, +S1S2 Lungs: Fair air entry b/l, -w/r/r Abdomen: Soft, ND, NT Extremities: No evidence of edema, - Calf tenderness Imaging: CT head 01/02: No acute intracranial abnormalities. Mild atrophy. Old lacunar infarct right frontal white matter. CXR 01/02: No acute pulmonary disease.Stable exam. Assessment and plan: Hypercalcemia with dehydration - Likely 2/2 hyperparathyroidism - Corrected calcium still remains elevated - Patient is scheduled for surgery later this month at [facility] in [place] - Vitamin D (25-OH, 1,25-OH), PTH pending - s/p IV fluids - Continue Cinacalcet / Calcitonin / Zoledronate / s/p Furosemide - Nephrology has been called on consultation; we appreciate their input s/p Rhabdomyolysis - CK Improving - c/w IV fluids EKG changes - likely 2/2 hypercalcemia / electrolyte abnormalities - Repeat EKG completed this morning; improvement noted - Troponin trend negative - Troponin have trended down from admission - ECHO pending - Case discussed with Dr. Zhu E. Faecalis bacteremia - Review of systems is negative for any source of infection; possibly UTI? - Patient has been hemodynamically stable and afebrile - Leukocytosis - Blood cultures 01/02, 01/03, 01/04: Have all been positive for gram-positive cocci in pairs and chains - Will repeat blood cultures today - Will check ECHO stat - c/w Vancomycin (Day #3) - Will consult infectious disease; awaiting evaluation / input Hypertension - BP well controlled - s/p Valsartan - c/w atenolol, diltiazem, and doxazosin BPH - c/w Doxazosin Gout - c/w Allopurinol DLP - c/w Rosuvastatin DVT prophylaxis - c/w Lovenox Disposition: - Awaiting clinical improvement VS,Perla, I+O VS, Angeliquee, I+O Laboratory Tests 01/04/21 12:22 01/05/21 05:39 Vital Signs Date Time Temp Pulse Resp B/P (MAP) Pulse Ox O2 Delivery O2 Flow Rate FiO2 01/05/21 08:00 97.2 89 18 110/55 (73) 96 Room Air 01/02/21 20:00 I&O- Last 24 Hours up to 6 AM 01/05/21 06:00 Intake Total 840 ml Output Total 200 ml Balance 640 ml KENDRICK QUINTANILLA MD January 05, 2021 09:00
[2021-01-05] MEDS: MIRALAX *UNIT DOSE* 17GM PACKET PO SCH ×2 (09:20→20:32)
[2021-01-05] MEDS: NEUTRA-PHOS 1.5 GM PACKET PO SCH ×3 (09:20→20:32)
[2021-01-05] MEDS: ASPIRIN ENTERIC 325 MG TAB PO SCH (09:21)
[2021-01-05] MEDS: SENOKOT S TAB PO SCH ×2 (09:22→20:32)
[2021-01-05] MEDS: allopurinoL 300 MG TAB PO SCH (09:22)
[2021-01-05] MEDS: CINACALCET 30 MG TAB (SENSIPAR) PO SCH ×2 (09:22→20:35)
[2021-01-05] MEDS: ENOXAPARIN 40MG/0.4ML SYRINGE (J1650 PER 10MG) SC SCH (09:22)
[2021-01-05] MEDS: atenoloL 50 MG TAB PO SCH (09:22)
--- NOTE | 2021-01-05 09:48 | ECGEPIP ---
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 Could not rule out prior IWMI. Previously noted left bundle branch block 01/04/21 has resolved Clinical correlation advised Electronically Signed on 01-05-2021 9:48:01 EDT by Jhonathan Zhu
[2021-01-05 11:17] LABS: PTH INTACT 241.2 PG/ML (18.5-88.0); TOTAL 25(OH) VITAMIN D 26.2 NG/ML (30.0-100.0)
[2021-01-05 12:00] VITALS: BP 102/57
[2021-01-05] MEDS: cefTRIAXone SOD 2 GM in D5W MINI-BAG PLUS 50 ML IV SCH (15:28)
[2021-01-05 16:00] VITALS: BP 97/54
[2021-01-05] MEDS: AMPICILLIN SOD 2 GM in D5W MINI-BAG PLUS 100 ML IV SCH ×3 (16:27→23:36)
--- NOTE | 2021-01-05 17:51 | CR.PDOC ---
General Date of Consultation: January 05, 2021 Attending Physician: Eduard Heath MD Consultation INFECTIOUS DISEASE CONSULTATION NOTE REASON FOR CONSULTATION/CHIEF COMPLAINT: E. faecalis bacteremia HISTORY OF PRESENT ILLNESS: Tello Moise is a very pleasant 65 YO M with history of parathyroid adenoma, hypertension, obstructive sleep apnea who presented to [facility] ED on 01/02/2021 having been brought in by EMS for lethargy. Per the patient, he underwent screening colonoscopy on 12/10/2020 and since that time he has "not felt right." He has had loss of appetite, lower abdominal cramping, and has been unable to get out of bed and do much around the house. Apparently on the morning of admission he was found by his daughter in the morning laying in bed, lethargic with urinary incontinence. Initial workup on his arrival was concerning for hypercalcemia at 14.1 and rhabdomyolysis. In regards to his hypercalcemia, he states this has been a known issue and his ENT in [place] has already scheduled him for parathyroidectomy surgery on 01/18/2021. Since his parathyroid adenoma was found he reports having been "sick" and has lost almost 30 pounds in the past 6 months. He does report some occasional night sweats as well. Infectious disease was called as he was recently found to have Enterococcus faecalis in his blood cultures 2. Today, he has no complaints. He no longer has any cramping abdominal pain as he did prior to admission. He denies any urinary complaints and has a Loving catheter. He is not having any nausea, vomiting, or diarrhea. PAST MEDICAL HISTORY: 1. Obstructive sleep apnea noncompliant with CPAP 2. Hypertension 3. Hyperlipidemia 4. Recent finding of parathyroid adenoma causing primary hyperparathyroidism 5. History of BPH 6. Chronic gout 7. Glaucoma 8. Erectile dysfunction 9. 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 REVIEW OF SYSTEMS: Constitutional: No Weight Change, No Fever, No Chills, reports occasional Night Sweats, No Fatigue, No Malaise ENT/Mouth: No Hearing Changes, No Ear Pain Eyes: No Eye Pain, No Swelling, No Redness, No Discharge, No Vision Changes Cardiovascular: No Chest Pain, No SOB, No PND, No Dyspnea on Exertion, No Orthopnea, No Claudication, No Edema, No Palpitations Respiratory: No Cough, No Wheezing, No Dyspnea Gastrointestinal: No Nausea, No Vomiting, No Diarrhea, No Constipation, No Pain, No Heartburn Genitourinary: No Dysuria Musculoskeletal: No Arthralgias, No Myalgias, No Joint Swelling, No Joint Stiffness, No Back Pain, No Neck Pain Skin: No Skin Lesions, No Pruritis, No Hair Changes, No Breast/Skin Changes, No Nipple Discharge Neuro: No Weakness, No Numbness, No Paresthesias, No Loss of Consciousness, No Syncope, No Dizziness, No Headache, No Coordination Changes, No Recent Falls Psych: No Anxiety/Panic, No Depression, No Insomnia, No Personality Changes, No Delusions Heme/Lymph: No Bruising, No Bleeding, No Transfusions History, No Lymphadenopathy Endocrine: No Polyuria, No Polydipsia, No Temperature Intolerance HOME MEDICATIONS: Please see below. PHYSICAL EXAMINATION: VITAL SIGNS: see below GENERAL: alert and oriented, in no apparent distress, pleasant and conversant in full sentences. HEENT: PERRL, EOMI, Oral mucous membranes are moist without lesions. NECK: The patient has no noted JVD. No adenopathy is appreciated. No thyromegaly CHEST/LUNGS: Lungs are clear bilaterally without rhonchi, rales, or wheezes. There is no subcutaneous air appreciated. There is no tenderness to the chest wall. HEART: Regular rate and rhythm. 2/6 systolic ejection murmur heard best in the right upper sternal border. Distal pulses are 2+. No carotid bruits appreciated. ABDOMEN: Soft, nontender, and nondistended. Bowel sounds are positive. No organomegaly is appreciated. No masses are appreciated. There are no peritoneal signs. There is no Hamer sign. EXTREMITIES: No peripheral edema. There is no focal long bone tenderness or deformity. SKIN: The patients skin is warm and dry, without rashes or lesions. PSYCHIATRIC: AAO x 3, normal mood/affect NEUROLOGIC: No obvious focal deficits LABORATORY DATA: See below. IMAGING: CT HEAD 01/02: IMPRESSION: No acute intracranial abnormalities. Mild atrophy. Old lacunar infarct right frontal white matter. CXR 01/02: FINDINGS: There is stable moderate elevation of the left hemidiaphragm. Crowded lung mar kings are seen in each lung base with no evidence of acute infiltrate. The heart is not significantly enlarged. The mediastinal silhouette is unchanged. IMPRESSION: No acute pulmonary disease.Stable exam. MICROBIOLOGY: Please see below. ASSESSMENT: This is a 65 YO M with history of HTN, HLD, CHRISTI and parathyroid adenoma who presents with lethargy and incontinence found to have hypercalcemia and rhabdomyolysis, now complicated by Enterococcus faecalis bacteremia. PLAN: 1. Enterococcus faecalis bacteremia, presumptive endocarditis: possible origin from GI or tract -s/p 3 days Vancomycin -Positive blood cx x2 on 01/02, additional 2 cx positive on 01/04, pending 01/05 cultures and urine culture -CRP elevated at 4.98, ESR 42 -CT ABD/PEL ordered to rule out abdominal pathology, such as abscess -Antibiotics changed to Rocephin and Ampicillin for now -Pending TTE read to r/o vegetation. According to PRADEEP criteria for E. faecalis endocarditis, patient has several risk factors indicating the need for LILLIANA. Will pursue this once TTE has been read. -Recent colonoscopy noted as only showing tubular adenoma Vital Signs/I&O Vital Signs Date Time Temp Pulse Resp B/P (MAP) Pulse Ox O2 Delivery O2 Flow Rate FiO2 01/05/21 16:00 97.8 85 18 97/54 (68) 97 Room Air 01/02/21 20:00 I&O- Last 24 Hours up to 6 AM 01/05/21 06:00 Intake Total 840 ml Output Total 200 ml Balance 640 ml Laboratory Data Labs 24H Laboratory Tests 2 01/04/21 19:14: Total Creatine Kinase 347H, Creatine Kinase MB 2.3, Creatine Kinase MB Relative Index 0.66, Troponin I 0.04 01/05/21 01:02: Total Creatine Kinase 353H, Creatine Kinase MB 2.0, Creatine Kinase MB Relative Index 0.57, Troponin I 0.04 01/05/21 05:39: Nucleated Red Blood Cells % (auto) 0.0, Anion Gap 6L, Glomerular Filtration Rate > 60.0, Calcium Level 11.1H, Whole Blood Ionized Calcium 6.0H, Phosphorus Level 2.3L, Magnesium Level 2.0, Total Bilirubin 0.5, Aspartate Amino Transf (AST/SGOT) 39H, Alanine Aminotransferase (ALT/SGPT) 44, Alkaline Phosphatase 82, Total Protein 5.3L, Total Protein (PEP) 5.4L, Albumin 2.1L, Albumin/Globulin Ratio 0.7 CBC/BMP Laboratory Tests 01/05/21 05:39 Microbiology Microbiology 01/05/21 Blood Culture, Received Pending 01/05/21 Blood Culture, Received Pending 01/04/21 Urine Culture, Received Pending 01/04/21 Blood Culture - Preliminary, Resulted 01/03/21 Blood Culture - Preliminary, Resulted 01/02/21 Blood Culture - Final, Complete Enterococcus Faecalis 01/02/21 Blood Culture - Final, Complete Enterococcus Faecalis Allergies Coded Allergies: No Known Allergies (Unverified , 12/02/20) Home Medications Scheduled Allopurinol (Zyloprim) 300 Mg Tablet, 300 MG PO DAILY, (Reported) Aspirin (Aspirin EC) 325 Mg Tablet.dr, 325 MG PO DAILY, (Reported) Atenolol (Atenolol) 100 Mg Tablet, 100 MG PO DAILY, (Reported) Diltiazem HCl (Diltiazem 24Hr ER) 240 Mg Cap.sa.24h, 240 MG PO QPM, (Reported) Doxazosin Mesylate (Doxazosin Mesylate) 4 Mg Tablet, 4 MG PO QHS, (Reported) Ergocalciferol (Vitamin D2) (Drisdol) 1,250 Mcg Capsule, 1,250 MCG PO Q2WK, (Reported) L.acidoph/L.bulg/B.bif/S.therm (Bacid Caplet) 1 Each Tablet, 1 TAB PO QID, (Repo rted) Latanoprost (Xalatan) 0.005% 2.5ML Drops, 1 DROP OU QHS, (Reported) Lisinopril (Lisinopril) 20 Mg Tablet, 10 MG PO QAM, (Reported) Lisinopril (Lisinopril) 20 Mg Tablet, 40 MG PO QHS, (Reported) Meloxicam (Meloxicam) 15 Mg Tablet, 15 MG PO DAILY, (Reported) Rosuvastatin Calcium (Rosuvastatin Calcium) 40 Mg Tablet, 40 MG PO QPM, (Repo rted) Valsartan (Valsartan) 320 Mg Tablet, 320 MG PO DAILY, (Reported) Scheduled PRN Cyclobenzaprine HCl (Cyclobenzaprine HCl) 10 Mg Tablet, 10 MG PO QHS PRN for MUSCLE SPASMS, (Reported) Dicyclomine HCl (Dicyclomine HCl) 10 Mg Capsule, 10 MG PO TID PRN for ABDOMINAL PAIN, (Reported) Sennosides/Docusate Sodium (Senna-S Tablet) 1 Each Tablet, 3 TAB PO DAILY PRN for CONSTIPATION, (Reported) Sildenafil Citrate (Sildenafil Citrate) 100 Mg Tablet, 50 MG PO ASDIRECTED PRN for ERECTILE DYSFUNCTION, (Reported) Miscellaneous Medications [Med Rec Comment] , (Reported) VERIFIED MEDICATIONS WITH DAUGHTER ORLANDO WHO HAD PILL BOTTLES, UNSURE WHEN TAKEN LAST GME ATTESTATION GME ATTESTATION My faculty preceptor for this patient encounter was physically present during the encounter and was fully available. All aspects of the patient interview, exa mination, medical decision making process, and medical care plan development were reviewed and approved by the faculty preceptor. The faculty preceptor is aware and concurs with the plan as stated in the body of this note and will attest to such by his/her cosignature. DOC THORNTON MD January 05, 2021 17:51
--- NOTE | 2021-01-05 19:03 | IPN ---
NEPHROLOGY PROGRESS NOTE DATE: 01/05/2021 SUBJECTIVE: Mr. Moise was seen and examined this morning at the bedside. He denies any complaints. Specifically, no nausea, no vomiting, no diarrhea, no shortness of breath. He tells me that he was scheduled for a "surgery for my gland of my neck causing high calcium", and tells me that the surgeons name is Dr. He at the [facility]. The patient received zoledronic acid yesterday and he is presently on Cinacalcet and Calcitonin and his ionized calcium today is still high at 6.0. OBJECTIVE: PHYSICAL EXAMINATION: VITAL SIGNS: Temperature 97.8, pulse 87, respiratory rate 18, blood pressure 102/57, saturating 96-97% on room air. INTAKE AND OUTPUT: Intake yesterday was 2.4 liters. Urine output was not fully recorded. Weight in the bed scale is not recorded. GENERAL APPEARANCE: The patient is seen lying in bed, awake, alert and oriented x3 in no distress. HEENT: Tongue is moist. NECK: Supple. Jugular veins are not elevated. HEART: Regular, S1, S2. There is no leg edema. LUNGS: Symmetric air entry. No crackles or rales. ABDOMEN: Soft and nontender. EXTREMITIES: Negative for edema or cyanosis. LABORATORY STUDIES: Today's labs show sodium of 142, potassium 4.0, BUN 17, creatinine 0.9, ionized calcium 6.0, phosphorous 2.3. His TTH resulted at 241. SPEP, UPEP and serum free light chains are still pending. Blood cultures on January 02 grew enterococcus faecalis x2 sets. Repeat blood cultures on January continue to show gram positive cocci in pairs and repeat blood cultures were sent again on January 05. IMAGING: Chest x-ray done January 02 shows no infiltrate. CURRENT INPATIENT MEDICATIONS: The patient is receiving Ampicillin 2 grams IV q. 4 hourly, Ceftriaxone 2 grams IV q. 12 hourly, Allopurinol, Aspirin, Atenolol, Calcitonin 400 i.u. subcutaneously q. 12 hourly, Sensipar 30 mg p.o. twice daily, Doxazosin, Diltiazem, Lovenox, Neutra-Phos packet p.o., three times daily, Rosuvastatin. PROBLEMS: 1. Hypercalcemia the patient's calcium level on admission was 14.1 which seems quite high given that his parathyroid hormone level is only mildly and modestly elevated at 241. There was probably also an element of dehydration given his recurrent bacteremia that was also causing elevation in calcium. Dr. Ramon was able to confirm with the [facility] in [place] that the patient indeed has a parathyroid adenoma and was scheduled for what sounds to be a partial parathyroidectomy. In any case, the patient has received Calcitonin, Cinacalcet and zoledronic acid, and I expect that his calcium levels will continue to improve and no changes were made today. 2. Hypophosphatemia related to primary hyperparathyroidism and the patient is receiving phosphorous supplementation. 3. E-faecalis bacteremia blood cultures on January 02, January 03 and January 04 have all been repeatedly positive and repeat cultures were sent again today, January 05. His urinalysis done yesterday was negative for bacteria. Echocardiogram is pending and Primary Team is also called for Infectious Disease's consult. The patient also had persistent leukocytosis. He is presently on Ampicillin and Ceftriaxone. He remains hemodynamically stable. 4. Hypertension most of his systolics are 100 to 110, which I think is rather tight control given his persistent bacteremia. He was taken off of Valsartan. He continues on Diltiazem and Atenolol. If his ectopy improves, I would suggest to cut down the Diltiazem dose.
--- NOTE | 2021-01-05 19:15 | REPVR ---
PROCEDURE INFORMATION: Exam: CT Abdomen And Pelvis Without Contrast Exam date and time: 01/05/2021 3:05 PM Age: 65 years old Clinical indication: Other: E faecalist bacteremia R/O abscess; Additional info: E faecalist bacteremia, R/O abscess TECHNIQUE: Imaging protocol: Computed tomography of the abdomen and pelvis without contrast. Radiation optimization: All CT scans at this facility use at least one of these dose optimization techniques: automated exposure control; mA and/or kV adjustment per patient size (includes targeted exams where dose is matched to clinical indication); or iterative reconstruction. COMPARISON: CT ABD PELVIS W/O CONTRAST 12/20/2014 2:47 PM FINDINGS: Limitations: Absence of intravenous contrast limits evaluation of vascular and visceral structures. Patient motion further obscures detail. Pleural spaces: There are small bilateral pleural effusions and bands of subsegmental atelectasis at both lung bases posteriorly. Liver: There are no focal liver lesions. Gallbladder and bile ducts: Normal. No calcified stones. No ductal dilation. Pancreas: The pancreas is normal. Spleen: The spleen appears hypoplastic. Adrenal glands: The adrenal glands appear prominent. They are not well assessed. Kidneys and ureters: There is no hydronephrosis or renal calculi. There is bilateral perinephric stranding. Stomach and bowel: There is no evidence of intestinal obstruction. Appendix: No evidence of appendicitis. Intraperitoneal space: Unremarkable. No free air. No significant fluid collection. Vasculature: There is no evidence of an infrarenal abdominal aortic aneurysm. There is mild atherosclerotic calcification. Lymph nodes: Unremarkable. No enlarged lymph nodes. Urinary bladder: The bladder is unremarkable. Reproductive: Prostatic enlargement. Bones/joints: There are bilateral L5 pars defects with grade 1 anterior spondylolisthesis of L5 on S1 with associated degeneration. Soft tissues: There is a fat-containing umbilical hernia. There may be a lipoma in the left rectus abdominus muscle unchanged. IMPRESSION: No abscess is identified. There is no hydronephrosis however there is relatively prominent bilateral perinephric stranding which may be acute or chronic. This was not apparent on the 12/20/2014 CT. Electronically signed by: Coretta Lazaro On 01/05/2021 19:14:59 PM
[2021-01-05 20:00] VITALS: BP 122/73
[2021-01-05] MEDS: DOXAZOSIN MESYLATE 4 MG TAB PO SCH (20:32)
[2021-01-05] MEDS: ROSUVASTATIN 10 MG TAB (CRESTOR) PO SCH (20:33)
[2021-01-06] VITALS: BP 105/58
[2021-01-06] MEDS: cefTRIAXone SOD 2 GM in D5W MINI-BAG PLUS 50 ML IV SCH (03:08)
[2021-01-06 04:00] VITALS: BP 115/66
[2021-01-06] MEDS: AMPICILLIN SOD 2 GM in D5W MINI-BAG PLUS 100 ML IV SCH ×3 (04:36→13:49)
[2021-01-06] MEDS: SLF 3 ML SYR IV SCH ×2 (04:37→14:02)
[2021-01-06 05:41] LABS: HEMATOCRIT 35.6 % (42.0-52.0); HEMOGLOBIN 11.3 g/dl (13.5-17.5); MEAN CORPUSCULAR HEMOGLOBIN 26.3 pg (27.0-33.0); MEAN CORPUSCULAR HGB CONC 31.7 g/dl (32.0-36.5); MEAN CORPUSCULAR VOLUME 82.8 fl (80.0-96.0); PLATELET COUNT, AUTOMATED 284 10^3/uL (150-450); WHITE BLOOD COUNT 12.9 10^3/uL (4.0-10.0)
[2021-01-06 05:49] LABS: ALT/SGPT 37 U/L (12-78); BILIRUBIN,TOTAL 0.4 MG/DL (0.2-1.0); BLOOD UREA NITROGEN 16 MG/DL (7-18); CALCIUM LEVEL 10.2 MG/DL (8.8-10.2); CARBON DIOXIDE LEVEL 28 MEQ/L (21-32); CHLORIDE LEVEL 107 MEQ/L (98-107); CREATININE FOR GFR 1.07 MG/DL (0.70-1.30); GLOMERULAR FILTRATION RATE > 60.0 (>49); GLUCOSE, FASTING 111 MG/DL (70-100); MAGNESIUM LEVEL 1.7 MG/DL (1.8-2.4); PHOSPHORUS LEVEL 2.3 MG/DL (2.5-4.9); POTASSIUM SERUM 3.8 MEQ/L (3.5-5.1); SODIUM LEVEL 140 MEQ/L (136-145); TOTAL PROTEIN 5.4 GM/DL (6.4-8.2)
[2021-01-06 08:00] VITALS: BP 105/52
[2021-01-06] MEDS: SENOKOT S TAB PO SCH (09:03)
[2021-01-06] MEDS: NEUTRA-PHOS 1.5 GM PACKET PO SCH (09:03)
[2021-01-06] MEDS: CINACALCET 30 MG TAB (SENSIPAR) PO SCH (09:03)
[2021-01-06] MEDS: ENOXAPARIN 40MG/0.4ML SYRINGE (J1650 PER 10MG) SC SCH (09:03)
[2021-01-06 09:04] VITALS: BP 105/52
[2021-01-06] MEDS: allopurinoL 300 MG TAB PO SCH (09:04)
[2021-01-06] MEDS: atenoloL 50 MG TAB PO SCH (09:04)
[2021-01-06] MEDS: ASPIRIN ENTERIC 325 MG TAB PO SCH (09:04)
[2021-01-06] MEDS: MIRALAX *UNIT DOSE* 17GM PACKET PO SCH (09:04)
[2021-01-06 12:00] VITALS: BP 120/74
[2021-01-06] MEDS ORDERED: CINA30TA5 PO (13:02)
[2021-01-06] MEDS ORDERED: [UNRECOGNIZED DRUG - CODE] IV (13:02)
[2021-01-06] MEDS ORDERED: AMPI2INJ18 IV (13:02)
--- NOTE | 2021-01-06 13:13 | DS.PDOC ---
Discharge Summary General Date of Admission January 04, 2021 at 08:24 Date of Discharge 01/06/2021 Discharge Summary PROCEDURES PERFORMED DURING STAY: [None]. 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 Upon arrival to emergency room, patient had hypercalcemia over 14 with dehydration and rhabdomyolysis. Patient was admitted to the hospitalist service for further evaluation and treatment. HOSPITAL COURSE: s/p Acute metabolic encephalopathy - likely 2/2 hypercalcemia and dehydration - Patient presented to the emergency room with confusion - Currently patient mentation has improved - No focal deficits - See below Hypercalcemia with dehydration - Likely 2/2 hyperparathyroidism - Case discussed with Dr. He; ENT; patient has had a sestamibi and CT scan of the soft tissues of his neck evidence of left neck mass that has been biopsied consistent with parathyroid gland; parathyroid hormone levels were noted to be significantly elevated in the 200s - Corrected calcium still remains elevated; however, improving - Patient is scheduled for surgery later this month at [facility] - PTH elevated; vitamin D 25-OH low - s/p IV fluids - c/w Cinacalcet / Calcitonin / s/p Zoledronate and Furosemide - Nephrology has been called on consultation; we appreciate their input s/p Rhabdomyolysis - CK Improving - c/w IV fluids EKG changes - likely 2/2 hypercalcemia / electrolyte abnormalities - Repeat EKG completed this morning; improvement noted - Troponin trend negative - Troponin have trended down from admission - Case discussed with Dr. 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 Zhu who has reported findings of carson sthoracic echocardiogram; evidence of mitral valve vegetations 2 with moderate to severe mitral insufficiency 60-65% ejection fraction, diastolic dysfunction, mildly dilated left atrium, left ventricular hypertrophy, dilated right heart with severe pulmonary hypertension - c/w ceftriaxone and ampicillin; s/p Vancomycin (Antibiotic day #3) - Infectious disease consultation; patient their input - Case discussed with Dr. Hoffman; patient has been accepted for transfer for evaluation by cardiac surgery at the recommendations of [facility] cardiology, Dr. Zhu Hypertension - BP well controlled - s/p Valsartan - c/w Atenolol, Diltiazem, and doxazosin BPH - c/w Doxazosin Gout - c/w Allopurinol DLP - c/w Rosuvastatin DVT prophylaxis - c/w Lovenox DISCHARGE MEDICATIONS: Please see below. ALLERGIES: Please see below. PHYSICAL EXAMINATION ON DISCHARGE: Vitals (See below) General: Lying in bed, no acute distress, comfortable, awake / alert; usually oriented to person, place and time HEENT: NC, AT CVS: RRR, +S1S2 Lungs: Fair air entry b/l, no appreciable wheezing, rhonchi or rales Abdomen: Soft, nondistended and nontender Extremities: No evidence of edema, - Calf tenderness LABORATORY DATA: Please see below. IMAGING: CT head 01/02: No acute intracranial abnormalities. Mild atrophy. Old lacunar infarct right frontal white matter. CXR 01/02: No acute pulmonary disease.Stable exam. CT abdomen / pelvis 01/05: No abscess is identified. There is no hydronephrosis however there is relatively prominent bilateral perinephric stranding which may be acute or chronic. This was not apparent on the 12/20/2014 CT. ACTIVITY: [As tolerated]. DISCHARGE PLAN: Follow-up with Dr. Hoffman of cardiac surgery at [facility] Remain compliant with treatment plan and medications Return to the ER if you experience any problems DISPOSITION: Transfer to [facility] DISCHARGE CONDITION: [Stable]. TIME SPENT ON DISCHARGE: 35 minutes. Vital Signs/I&Os Vital Signs Date Time Temp Pulse Resp B/P (MAP) Pulse Ox O2 Delivery O2 Flow Rate FiO2 01/06/21 12:00 97.8 84 22 120/74 (89) 91 Room Air 01/02/21 20:00 I&O- Last 24 Hours up to 6 AM 01/06/21 06:00 Intake Total 1120 ml Output Total 700 ml Balance 420 ml Laboratory Data Labs 24H Laboratory Tests 2 01/06/21 05:06: Nucleated Red Blood Cells % (auto) 0.0, Anion Gap 5L, Glomerular Filtration Rate > 60.0, Calcium Level 10.2, Phosphorus Level 2.3L, Magnesium Level 1.7L, Total Bilirubin 0.4, Aspartate Amino Transf (AST/SGOT) 31, Alanine Aminotransferase (ALT/SGPT) 37, Alkaline Phosphatase 83, Total Protein 5.4L, Albumin 2.0L, Albumin/Globulin Ratio 0.6 CBC/BMP Laboratory Tests 01/06/21 05:06 Microbiology Microbiology 01/05/21 Blood Culture - Preliminary, Resulted No growth after 24 hours . All specim... 01/05/21 Blood Culture - Preliminary, Resulted No growth after 24 hours . All specim... 01/04/21 Urine Culture - Final, Complete Morganella Morganii Ssp Farhat 01/04/21 Blood Culture - Preliminary, Resulted 01/03/21 Blood Culture - Final, Complete Enterococcus Faecalis 01/02/21 Blood Culture - Final, Complete Enterococcus Faecalis 01/02/21 Blood Culture - Final, Complete Enterococcus Faecalis Discharge Medications Scheduled Ampicillin Sodium (Ampicillin Sodium) 2 Gm Vial, 2 GM IV Q4H Aspirin (Aspirin EC) 325 Mg Tablet.dr, 325 MG PO DAILY, (Reported) Atenolol (Atenolol) 100 Mg Tablet, 100 MG PO DAILY, (Reported) Ceftazidime in Dextrose5%Water (Ceftazidime 2 gm Piggyback) 2 Gm/50 Ml Piggyback, 1 AYALA IV Q12H Cinacalcet HCl (Cinacalcet HCl) 30 Mg Tablet, 30 MG PO BID Diltiazem HCl (Diltiazem 24Hr ER) 240 Mg Cap.sa.24h, 240 MG PO QPM, (Reported) Doxazosin Mesylate (Doxazosin Mesylate) 4 Mg Tablet, 4 MG PO QHS, (Reported) Ergocalciferol (Vitamin D2) (Drisdol) 1,250 Mcg Capsule, 1,250 MCG PO Q2WK, (Reported) L.acidoph/L.bulg/B.bif/S.therm (Bacid Caplet) 1 Each Tablet, 1 TAB PO QID, (Reported) Latanoprost (Xalatan) 0.005% 2.5ML Drops, 1 DROP OU QHS, (Reported) Rosuvastatin Calcium (Rosuvastatin Calcium) 40 Mg Tablet, 40 MG PO QPM, ( Reported) Scheduled PRN Cyclobenzaprine HCl (Cyclobenzaprine HCl) 10 Mg Tablet, 10 MG PO QHS PRN for MUSCLE SPASMS, (Reported) Sennosides/Docusate Sodium (Senna-S Tablet) 1 Each Tablet, 3 TAB PO DAILY PRN for CONSTIPATION, (Reported) Allergies Coded Allergies: No Known Allergies (Unverified , 12/02/20) KENDRICK QUINTANILLA MD January 06, 2021 13:13
[2021-01-06 13:21] LABS: ALBUMIN 2.31 GM/DL (3.29-5.55); ALBUMIN % 42.8 % (55.8-66.1); ALPHA-1-GLOBULIN % 10.5 % (2.9-4.9); ALPHA-1-GLOBULINS 0.57 GM/DL (0.17-0.41); ALPHA-2-GLOBULINS 0.94 GM/DL (0.42-0.99); ALPHA-2-GLOBULINS % 17.4 % (7.1-11.8); BETA-1-GLOBULINS 0.26 GM/DL (0.28-0.60); BETA-1-GLOBULINS % 4.9 % (4.7-7.2); BETA-2-GLOBULINS 0.36 GM/DL (0.19-0.55); BETA-2-GLOBULINS % 6.6 % (3.2-6.5); GAMMA GLOBULIN % 17.8 % (11.1-18.8); GAMMA GLOBULINS 0.96 GM/DL (0.65-1.58)
--- NOTE | 2021-01-06 13:32 | ECHO ---
DATE OF PROCEDURE: 01/05/2021 Age: 65 Gender: Male Height: 71 inches Weight: 249 pounds Body surface area: 2.31 m2 PATIENT LOCATION: Inpatient PCU, Room 3222. REFERRING PHYSICIAN: Khushboo Ramon M.D. INDICATION: Strep faecalis sepsis. MEASUREMENTS: 2D Measurements: RV 4.9 cm LV 4.4 cm Septum 1.3 cm Posterior wall 1.3 cm Aortic Root 3.9 cm LA 4.6 cm LVEF 70-75% Doppler Measurements: AV 1.6 m/s LVOT 1.2 m/s LVOT diameter 2.0 cm MV-E 126, A 64, E/A ratio 2.0 Early mitral deceleration time 158 msec E prime medial 6, A prime medial 5, E prime lateral 9 Average E/E prime ratio 16.8/PCWP 22.7 mmHg PV 0.8 m/s Pulmonary artery acceleration time 80 msec RVSP 60 mmHg IVC 2.5 cm COMMENTS: Underlying sinus rhythm with incomplete alternating with complete left bundle branch block pattern. Technically challenging study in light of the patients body habitus, but diagnostically useful information was still obtained. M-mode and two-dimensional echocardiography was performed with pulse, continuous wave, color flow, and tissue Doppler studies. Mild concentric left ventricular hypertrophy with hyperkinetic wall motion. Moderately dilated left atrium with grade 2 LV diastolic dysfunction and elevated estimated mean left atrial pressure. At least moderately dilated right heart chambers with normal right ventricular free wall motion and Doppler evidence of severe pulmonary hypertension. Prominently dilated inferior vena cava with adequate respiratory collapse consistent with at least a mildly elevated central venous pressure. Aortic diameters upper limits of normal. Moderate aortic valvular sclerosis with adequate cusp separation with at least mild insufficiency. Mild degenerative changes of the mitral valve apparatus with adequate leaflet excursion and no posterior systolic buckling, but two small vegetations were visible on the anterior leaflet measuring approximately 1.1 x 0.5 cm. Normal appearing tricuspid valve with moderately severe insufficiency. Could not rule out a sessile vegetation on the aortic valve or for that matter the tricuspid valve in light of his body habitus. Small pericardial effusion measuring 2 mm anteriorly and 4 mm posteriorly, but no cardiac chamber compression. A preliminary report of this study was relayed to Dr. Ramon. [facility]
[2021-01-06 16:00] VITALS: BP 105/66
[2021-01-06 18:11] LABS: FREE KAPPA LIGHT CHAINS SERUM 38.7 mg/L (3.3-19.4); FREE LAMBDA LIGHT CHAINS SERUM 33.4 mg/L (5.7-26.3); KAPPA/LAMBDA RATIO SERUM 1.16 (0.26-1.65)
--- NOTE | 2021-01-07 00:21 | IPN ---
INFECTIOUS DISEASE PROGRESS NOTE DATE: 01/06/2021 SUBJECTIVE: Mr. Moise is being transferred to [place] this afternoon because of endocarditis with a vegetation size of 1.1 cm x 0.5 cm. The echocardiogram was read by Dr. Zhu, who recommended this transfer. The transfer has been arranged by the hospitalist, Dr. Ramon. The patient also had moderately severe tricuspid insufficiency, moderate aortic valve sclerosis with mild insufficiency. The aortic valve and the tricuspid valve could not be very well visualized. LABORATORY DATA: White count 12.9, hemoglobin 11.3, hematocrit 35.6, platelets 284,000. ESR 42. Sodium 140, potassium 3.8, chloride 107, bicarb 28, BUN 16, creatinine 1.07, glucose 111. Calcium 10.2. Phosphorus 2.3. Magnesium 1.7. Bilirubin 0.4. AST 31, ALT 37, alkaline phosphatase 83. Total protein 5.4. Albumin 2. CRP 4.98. BLOOD CULTURES ON ADMISSION: Four sets were positive for E. faecalis 01/02 two sets. From 01/03 was positive. Vancomycin was started on 01/03. On 01/04 blood culture was still positive for gram positive cocci in pairs. Blood culture from 01/05 two sets after 48 hours of I.V. Vancomycin were no growth after 24 hours. MEDICATIONS: Ampicillin 2 gram I.V. every 4 hours; currently day #2 and Rocephin 2 grams I.V. every 12 hours. PHYSICAL EXAMINATION: GENERAL: A pleasant looking gentleman in no acute distress. VITAL SIGNS: Temperature 97.6, pulse 83, respirations 20, blood pressure 105/66, O2 sat 93% on room air. HEART: Normal S1, S2 with a holosystolic murmur 3/6 best heard at the left upper sternal border. LUNGS: Diminished breath sounds at the bases, but clear. No wheezes, rales or rhonchi. ABDOMEN: Morbidly obese, soft, nontender. EXTREMITIES: No cyanosis or clubbing. He has trace edema. No peripheral stigma for endocarditis. No petechial lesions. NECK: Supple, no bruits. HEENT: Pupils equal and reactive, anicteric. IMPRESSION: 1. 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 Recommendation by cardiology was to transfer to [facility]. The patient definitely would benefit from a transesophageal echocardiogram for better visualization of the mitral valve vegetation and size. At this point, he does not have evidence of congestive heart failure. He had received 48 hours of I.V. Vancomycin started January 03 and was culture negative on January 05. and he was started on I.V. Ampicillin and Ceftriaxone for presumptive E. faecalis endocarditis before echo results were finalized. The patient will need 6 weeks of I.V. antibiotics with Ampicillin and Ceftriaxone. Depending on the results of LILLIANA, if the vegetation size is large, he may need valve replacement. 2. 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 This will need to be on hold until his treatment of endocarditis. 3. Morganella morganii bacteruria: The patient does not have urinary symptoms and therefore does not need to be treated. PLAN: Case has been discussed with the patient and his coworker/ boss at [employer] who was in the room. His sister, Jaqui Moise, called from [place], telephone number and we have updated her on the status of Tello [place]. She stated that his brother, Reza, will fly from [place] to meet him at [facility]. Transfer to [facility] for LILLIANA and possible Valve replacement based on vegetation size [facility]
--- NOTE | 2021-01-07 13:55 | IPN ---
INPATIENT PROGRESS NOTE DATE: 01/06/2021 SUBJECTIVE: Patient is seen and examined this morning at the bedside. He denies any complaints. He has been incontinent of urine and wetting himself and his urine output has not been quantified. Nursing staff tried to place a condom catheter, but the patient kept on removing it. His calcium levels continue to improve and his corrected calcium is now 11.8. Ionized calcium was not done this morning. He had an echocardiogram which showed 2 small vegetations on the mitral valve leaflets. PHYSICAL EXAMINATION: Vital signs: Temperature 98.2, pulse 103, respiratory rate 26, blood pressure 105/52, saturating 93-95% on room air. Intake yesterday was recorded as 1120, urine output was not quantified because patient has been incontinent. Weight on the bed scale today is 118.3 kg. General: Patient is seen lying in bed awake, alert, oriented to person, place and situation, in no apparent distress. HEENT: Tongue is moist. Neck: Supple, jugular veins were not elevated. Heart sounds: Regular S1 and S2. There is no leg edema. Lungs: Symmetric air entry, no crackles or rales. Abdomen: Soft and nontender. Extremities: Negative for edema or cyanosis. He is noted to be incontinent of urine. Skin: Normal temperature and turgor. LABORATORY DATA: Labs done today show sodium 140, potassium 3.8, bicarbonate 28, BUN 16, creatinine 1, calcium 10.2 with an albumin of 2 hence giving a corrected calcium of 11.8, magnesium 1.7. Normal kappa lambda serum light chain ratio. IMAGING STUDIES: Echocardiogram: Two small vegetations on mitral valve. INPATIENT MEDICATIONS: He continues on I.V. ampicillin and I.V. ceftriaxone. The remainder of the medications have been unchanged over the past 2 days. PROBLEMS/PLAN: 1. Hypercalcemia secondary to hyperparathyroidism and dehydration in the setting of bacteremia and bacterial endocarditis: Patient's corrected calcium is still elevated, 11.8 today. He is status post alendronic acid and he has also received calcitonin. He continues on cinacalcet. He has already planned for definitive surgical management of his parathyroid adenoma with ENT through [facility]. 2. Persistent E. faecalis bacteremia with blood cultures positive on January 02, January 03 and January 04: Patient has been evaluated by infectious disease. He is currently on I.V. ceftriaxone and I.V. ampicillin and he had an echocardiogram done now which shows 2 small vegetations on the mitral valve and dilated right heart with severe pulmonary hypertension and he is being transferred for further evaluation by cardiac surgery. 3. Hypertension: His blood pressures were soft during this admission in the setting of bacteremia and he is off the valsartan that he takes at home and he continues on atenolol and diltiazem.
== END 2021-01-06 17:33 | disposition short-term general hospital (02) | DRG 288 ==
LOC: EDBD 10:54 → EDSEX 10:54 → M ED 10:54 → M ED INP 10:55 → ENRESERV 17:10 → M PCU 18:00 → M MSPAV 01-03 14:40 → OBSVTOIN 01-04 08:24 → M PCU 01-04 15:15
PROVIDERS: ADMIT Internal Medicine Nephrology; ATTEND Internal Medicine
DX: I33.0 Acute and subacute infective endocarditis (principal); G93.41 Metabolic encephalopathy; M62.82 Rhabdomyolysis; R78.81 Bacteremia; E83.52 Hypercalcemia; E86.0 Dehydration; I12.9 Hypertensive chronic kidney disease with stage 1 through stage 4 chronic kidney disease, or unspecified chronic kidney disease; E78.5 Hyperlipidemia, unspecified; M10.30 Gout due to renal impairment, unspecified site; K59.00 Constipation, unspecified; H40.9 Unspecified glaucoma; R32 Unspecified urinary incontinence; D35.1 Benign neoplasm of parathyroid gland; G47.33 Obstructive sleep apnea (adult) (pediatric); N40.1 Benign prostatic hyperplasia with lower urinary tract symptoms; N52.9 Male erectile dysfunction, unspecified; E21.0 Primary hyperparathyroidism; E83.42 Hypomagnesemia; E83.39 Other disorders of phosphorus metabolism; N18.9 Chronic kidney disease, unspecified; Z79.82 Long term (current) use of aspirin; Z20.822 Contact with and (suspected) exposure to COVID-19; Z87.891 Personal history of nicotine dependence; Z79.899 Other long term (current) drug therapy